=== PATIENT | female | born 1940 | race Caucasian/White ===

== ENCOUNTER → 2016-11-28 | Outpatient (CLI) | payer OTHER ==
[~2016-11-28] MED LIST: ASPIR 8181 MG PO; ATIVAN1 MG PO; CALCIUM 600 +1 EAC1 PO; CENTRUM SILVER1 EAC4 PO; FISH OIL 1,001000 M2 PO; SIMVASTATIN40 MG PO; VITAMINC500 PO
== END ==
LOC: RAD 10:43
DX: Z12.31 Encounter for screening mammogram for malignant neoplasm of breast (principal)

== ENCOUNTER → 2017-04-09 | Outpatient (CLI) | payer OTHER | LOC: ULTRA 01:16 | DX: N63 Unspecified lump in breast (principal); Z85.3 Personal history of malignant neoplasm of breast ==

== ENCOUNTER → 2019-05-10 | Outpatient (CLI) | payer OTHER | LOC: NUC 09:27 | DX: M81.0 Age-related osteoporosis without current pathological fracture (principal); Z78.0 Asymptomatic menopausal state ==